=== PATIENT | female | born 1985 | race African-American/Black ===

== ENCOUNTER 2019-11-10 13:45 | Emergency (ER) | payer BC, OTHER ==
[~2019-11-10] VITALS: Ht 170.2 cm; Wt 69.4 kg
[2019-11-10] MEDS ORDERED: IRON325 M1 PO (14:02)
[2019-11-10] MEDS ORDERED: GLEEVEC400 MG PO (14:02)
[2019-11-10] MEDS ORDERED: MAGNESIUM400 M1 PO (14:03)
[2019-11-10 14:11] LABS: URINE BILIRUBIN NEGATIVE (Negative); URINE BLOOD TRACE (Negative); URINE CLARITY CLEAR; URINE COLOR YELLOW; URINE GLUCOSE-RANDOM* NEGATIVE (Negative); URINE KETONES NEGATIVE (Negative); URINE LEUKOCYTES-REFLEX NEGATIVE (Negative); URINE NITRITE-REFLEX NEGATIVE (Negative); URINE PROTEIN (DIPSTICK) NEGATIVE (Negative); URINE SPECIFIC GRAVITY 1.025 (1.005-1.035); URINE UROBILINOGEN 0.2 E.U./dl (0.2-1.0)
[2019-11-10 14:24] LABS: CALCIUM 9.4 mg/dL (8.5-10.1); CREATININE 0.9 mg/dL (0.6-1.0); POTASSIUM 4.2 mmol/L (3.5-5.1)
[2019-11-10 14:30] LABS: ALBUMIN 4.1 g/dL (3.4-5.0); TOTAL BILIRUBIN 0.4 mg/dL (<0.1-1.0)
[2019-11-10 14:46] LABS: HEMATOCRIT 25.5 % (37.0-47.0); HEMOGLOBIN 7.3 gm/dL (12.0-15.0); MCH 17.2 pg (26.0-34.0); MCHC 28.7 g/dL (28.0-37.0); RBC 4.25 mil/uL (4.20-5.00); RDW 31.4 % (10.5-14.5)
[2019-11-10 14:49] LABS: WBC 50.7 thou/uL (4.0-11.0)
[2019-11-10 15:06] LABS: ABSOLUTE NEUTROPHILS 35.5 thou/uL (1.4-8.2); METAMYELOCYTES 11 %; MYELOCYTES 5 %
[2019-11-10 15:07] LABS: ANISOCYTOSIS 3+; MICROCYTES 3+; OVALOCYTES 1+; SCHISTOCYTES 1+
[2019-11-10 15:08] LABS: HYPOCHROMASIA 3+
[2019-11-10 15:10] LABS: LARGE PLATELETS FEW; PLATELET COUNT 419 thou/uL (150-400)
[2019-11-10 16:39] VITALS: BP 109/67
== END 2019-11-10 16:45 | disposition home or self-care (01) ==
LOC: ER 13:45
PROVIDERS: Nurse Practitioner
DX: N89.8 Other specified noninflammatory disorders of vagina (principal); Z86.2 Personal history of diseases of the blood and blood-forming organs and certain disorders involving the immune mechanism; Z98.890 Other specified postprocedural states